=== PATIENT | female | born 1995 | race Caucasian/White ===

== ENCOUNTER 2017-06-17 11:21 | Emergency (ER) | payer MEDICAID ==
[~2017-06-17] VITALS: Wt 81.0 kg
[2017-06-17] MEDS ORDERED: SOD CHLORIDE 0.9% 1,000 ML IV STA (12:13)
[2017-06-17] MEDS ORDERED: ONDANSETRON 4 MG INJ IV STA (12:13)
--- NOTE | 2017-06-17 12:30 | ERD ---
ER Documentation Chief Complaint Date/Time DATE: 06/17/17 TIME: 12:28 Chief Complaint VOMITING WITH N/V 13 WEEK PREG HPI This a 21-year-old female presents emergency department today complaining of vomiting and nausea for the past week. States she is approximately 12-13 weeks . States that she has had nausea throughout her but it has been worse over the past week and she is having difficulty holding down fluids. States she has not taken anyMedication for vomiting. Denies any dysuria, abdominal pain, vaginal bleeding or fevers or chills. States she does have a slight headache. ROS All systems reviewed and are negative except as per history of present illness. Medications Home Meds Active Scripts Nitrofurantoin Monohyd Macrocr* (Macrobid*) 100 Mg Capsr, 100 MG PO BID for 7 Days, CAP Prov:JUANI BERMAN PA-C 06/17/17 Acetaminophen* (Tylophen*) 500 Mg Capsule, 1 CAP PO Q6H Y for PAIN AND OR ELEVATED TEMP, #30 CAP Prov:JUANI BERMAN PA-C 06/17/17 Ondansetron Hcl* (Zofran*) 4 Mg Tablet, 4 MG PO Q6H for NAUSEA AND/OR VOMITING, #30 TAB Prov:JUANI BERMAN PA-C 06/17/17 PMhx/Soc Medical and Surgical Hx: pt denies Medical Hx, pt denies Surgical Hx Hx Alcohol Use: No Hx Substance Use: No Hx Tobacco Use: No Smoking Status: Never smoker Physical Exam Vitals Vital Signs Date Time Temp Pulse Resp B/P Pulse Ox O2 Delivery O2 Flow Rate FiO2 06/17/17 11:28 98.0 79 18 126/76 99 Physical Exam Const: NAD, pleasant Head: Atraumatic Eyes: Normal Conjunctiva ENT: Normal External Ears, Nose and Mouth. Neck: Full range of motion..~ No meningismus. Resp: Clear to auscultation bilaterally Cardio: Regular rate and rhythm, no murmurs Abd: Soft, non tender, non distended. Normal bowel sounds Skin: No petechiae or rashes Back: No midline or flank tenderness Ext: No cyanosis, or edema Neur: Awake and alert Psych: Normal Mood and Affect Result Diagram: 06/17/17 1231 06/17/17 1231 Results 24 hrs Laboratory Tests Test 06/17/17 12:31 White Blood Count 9.410^3/ul Red Blood Count 4.9210^6/ul Hemoglobin 13.5g/dl Hematocrit 40.7% Mean Corpuscular Volume 82.7fl Mean Corpuscular Hemoglobin 27.4pg Mean Corpuscular Hemoglobin Concent 33.2g/dl Red Cell Distribution Width 13.3% Platelet Count 11707^3/UL Mean Platelet Volume 12.2fl Neutrophils % 78.4% Lymphocytes % 15.0% Monocytes % 5.8% Eosinophils % 0.1% Basophils % 0.3% Nucleated Red Blood Cells % 0.0/100WBC Neutrophils # 7.310^3/ul Lymphocytes # 1.410^3/ul Monocytes # 0.510^3/ul Eosinophils # 0.010^3/ul Basophils # 0.010^3/ul Nucleated Red Blood Cells # 0.010^3/ul Urine Color HUSSEIN Urine Clarity CLOUDY Urine pH 5.0 Urine Specific [place] 1.033 Urine Ketones 2+mg/dL Urine Nitrite NEGATIVEmg/dL Urine Bilirubin NEGATIVEmg/dL Urine Urobilinogen 1+mg/dL Urine Leukocyte Esterase TRACELeu/ul Urine Microscopic RBC 6/HPF Urine Microscopic WBC 13/HPF Urine Squamous Epithelial Cells FEW/HPF Urine Bacteria FEW/HPF Urine Mucus MANY/HPF Urine Hemoglobin 2+mg/dL Urine Glucose NEGATIVEmg/dL Urine Total Protein 2+mg/dl Sodium Level 138mmol/L Potassium Level 3.9mmol/L Chloride Level 105mmol/L Carbon Dioxide Level 21mmol/L Anion Gap 16 Blood Urea Nitrogen 9mg/dl Creatinine 0.59mg/dl Glucose Level 146mg/dl Calcium Level 9.6mg/dl Total Bilirubin 0.2mg/dl Direct Bilirubin 0.00mg/dl Indirect Bilirubin 0.2mg/dl Aspartate Amino Transf (AST/SGOT) 22IU/L Alanine Aminotransferase (ALT/SGPT) 27IU/L Alkaline Phosphatase 66IU/L Total Protein 8.7g/dl Albumin 4.4g/dl Globulin 4.30g/dl Albumin/Globulin Ratio 1.02 Beta HCG, Quantitative 516051.0mIU/ml Current Medications Medications (Trade) Dose Ordered Sig/Romario Route PRN Reason Start Time Stop Time Status Last Admin Dose Admin Sodium Chloride (NS) 1,000 ml @ 1,000 mls/hr Q1H STAT IV 06/17/17 12:13 06/17/17 13:12 DC 06/17/17 12:27 Ondansetron HCl (Zofran Inj) 4 mg ONCE STAT IV 06/17/17 12:13 06/17/17 12:15 DC 06/17/17 12:26 DIAGNOSTIC IMAGING REPORT Patient: ANDREE DENTON : 1995 Age: 21 Sex: F MR #: [id number] DOS: 06/17/17 0000 Ordering MD: JUANI BERMAN PA-C Location: [facility] Room/Bed: PROCEDURE: US OB. CLINICAL INDICATION: Size and dates, vomiting TECHNIQUE: Transabdominal views of the pelvis are available for review. COMPARISON: No prior studies are available for comparison. FINDINGS: There is a single intrauterine gestation with the crown-rump length measuring 5.9 cm, corresponding to a gestational age of 12 weeks and 3 days. The heart rate is noted at 161 bpm. The ovaries are not visualized. There is no free fluid. RPTAT: AA IMPRESSION: Single live intrauterine with an estimated gestational age of 12 weeks and 3 days, based on ultrasound measurements. PATTI based on ultrasound measurements is 12/29/17. .Young De Jesus MD, MD Date Time Electronically viewed and signed by .Young De Jesus MD, MD on 06/17/2017 12: 45 .S/ CC: JUANI BERMAN PA-C Procedures/MDM This is a A1 21-year-old female who presents the emergency department today for nausea and vomiting for the past week.This is the patient's first visit to this emergency department and given this I did do a complete OB workup. Laboratory workShows no elevated white blood cell count. She is not anemic. Platelets are within normal limits. Electrolytes are within normal limits. Glucose is within normal limits. Liver enzymes are within normal limits. UA Shows trace leukocyte esterase and 13 microscopic white blood cells. Beta quant hCG 761412.0 Rh status B+ Ultrasound shows a a single live intrauterine with an estimated gestational age of 12 weeks and 3 days. heart rate is 161 bpm. There is no free fluid. Patient is afebrile and otherwise well-appearing. She has no abdominal pain on physical exam and no vaginal bleeding. Low suspicion for acute surgical abdomen. I have low suspicion for ectopic , tubo ovarian abscess, ovarian torsion. Patient symptoms at this time is consistent with vomiting in early . Patient was not actively vomiting here in the emergency department. Her laboratory workup and electrolytes are within normal limits and I do not feel that she requires admission at this time. Patient will begin a prescription for Macrobid to treat the bacteria in her urine. I have explained this to her. Patient was given Zofran, IV fluids here in the emergency department. Patient reported feeling better. She was given juice to drink and successfully passed a p.o. challenge and reported that the juice sat well with her. Patient was given a prescription for Tylenol, Zofran, Pedialyte, Macrobid At this time the patient is stable for discharge and outpatient management. Patient should follow up with their PCP in the next 1-2 days. They may return to the emergency department sooner for any persistent or worsening of symptoms. Patient understood and agreed with the plan. Departure Diagnosis: Primary Impression: Vomiting during Condition: JUANI Cleaning PA-C Jun 17, 2017 12:30
[2017-06-17 12:45] LABS: BASOPHILS % 0.3 % (0.0-2.0); EOSINOPHILS % 0.1 % (0.0-7.0); HEMATOCRIT 40.7 % (37.0-47.0); HEMOGLOBIN 13.5 g/dl (12.0-16.0); LYMPHOCYTES # 1.4 10^3/ul (0.8-2.9); MEAN CORPUSCULAR HEMOGLOBIN 27.4 pg (29.0-33.0); MEAN CORPUSCULAR HGB CONC 33.2 g/dl (32.0-37.0); MEAN CORPUSCULAR VOLUME 82.7 fl (82.0-101.0); MEAN PLATELET VOLUME 12.2 fl (7.4-10.4); MONOCYTE # 0.5 10^3/ul (0.3-0.9); MONOCYTES % 5.8 % (0.0-11.0); NEUTROPHIL # 7.3 10^3/ul (1.6-7.5); NEUTROPHILS % 78.4 % (39.0-77.0); PLATELET COUNT 211 10^3/UL (140-415); RED BLOOD COUNT 4.92 10^6/ul (4.20-5.40); RED CELL DISTRIBUTION WIDTH 13.3 % (11.5-14.5); WHITE BLOOD COUNT 9.4 10^3/ul (4.8-10.8)
--- NOTE | 2017-06-17 12:45 | RADRPT ---
PROCEDURE: US OB. CLINICAL INDICATION: Size and dates, vomiting TECHNIQUE: Transabdominal views of the pelvis are available for review. COMPARISON: No prior studies are available for comparison. FINDINGS: There is a single intrauterine gestation with the crown-rump length measuring 5.9 cm, corresponding to a gestational age of 12 weeks and 3 days. The heart rate is noted at 161 bpm. The ovaries are not visualized. There is no free fluid. RPTAT: AA IMPRESSION: Single live intrauterine with an estimated gestational age of 12 weeks and 3 days, based o n ultrasound measurements. PATTI based on ultrasound measurements is 12/29/17. .Young De Jesus MD, MD Date Time Electronically viewed and signed by .Young De Jesus MD, on 06/17/2017 12:45 .S/
[2017-06-17 13:04] LABS: ALBUMIN 4.4 g/dl (3.3-4.9); ALBUMIN/GLOBULIN RATIO 1.02; BILIRUBIN,INDIRECT 0.2 mg/dl (0-1.1); BILIRUBIN,TOTAL 0.2 mg/dl (0.2-1.3); CALCIUM 9.6 mg/dl (8.4-10.2); CREATININE 0.59 mg/dl (0.44-1.00); POTASSIUM 3.9 mmol/L (3.5-5.1); TOTAL PROTEIN 8.7 g/dl (6.1-8.1)
[2017-06-17 13:05] LABS: ADD UMIC YES; UR ASCORBIC ACID NEGATIVE (NEGATIVE); UR BACTERIA FEW /HPF (NONE SEEN); UR BILIRUBIN (Dip) NEGATIVE (NEGATIVE); UR BLOOD (Dip) 2+ mg/dL (NEGATIVE); UR CLARITY CLOUDY (CLEAR); UR COLOR AMBER (YELLOW); UR GLUCOSE (Dip) NEGATIVE (NEGATIVE); UR KETONES (Dip) 2+ mg/dL (NEGATIVE); UR LEUKOCYTE ESTERASE (Dip) TRACE Leu/ul (NEGATIVE); UR MUCUS MANY /HPF (NONE SEEN); UR NITRITE (Dip) NEGATIVE (NEGATIVE); UR RBC 6 /HPF (0-5); UR SPECIFIC GRAVITY (Dip) 1.033 (1.003-1.030); UR SQUAMOUS EPITHELIAL CELL FEW /HPF (FEW); UR TOTAL PROTEIN (Dip) 2+ mg/dl (NEGATIVE); UR UROBILINOGEN (Dip) 1+ mg/dL (NEGATIVE)
[2017-06-17] MEDS ORDERED: ONDA4TAB8 PO (14:38)
[2017-06-17] MEDS ORDERED: ACET500C5 PO (14:39)
[2017-06-17] MEDS ORDERED: NITR-58 PO (14:39)
[2017-06-17] MEDS ORDERED: ELEC100080 PO (14:45)
== END 2017-06-17 15:00 | disposition home or self-care (01) ==
LOC: FTE 11:21
DX: O21.9 Vomiting of pregnancy, unspecified (principal); Z3A.12 12 weeks gestation of pregnancy
CPT/HCPCS: 36415; 76801; 80053; 81001; 84702; 85025; 86900; 86901; 96374; J2405; J7030; Z7502

== ENCOUNTER 2017-06-23 10:05 | Emergency (ER) | payer MEDICAID ==
[~2017-06-23] VITALS: Ht 165.1 cm; Wt 87.5 kg
[~2017-06-23 10:05] MED LIST: ACET500C5 PO; ELEC100080 PO; NITR-58 PO; ONDA4TAB8 PO
[2017-06-23 10:08] VITALS: Ht 165.1 cm; Wt 87.5 kg
[2017-06-23 11:18] LABS: BASOPHILS % 0.3 % (0.0-2.0); EOSINOPHILS % 0.3 % (0.0-7.0); HEMATOCRIT 40.6 % (37.0-47.0); HEMOGLOBIN 13.7 g/dl (12.0-16.0); LYMPHOCYTES # 1.7 10^3/ul (0.8-2.9); LYMPHOCYTES % 24.6 % (15.0-51.0); MEAN CORPUSCULAR HEMOGLOBIN 27.8 pg (29.0-33.0); MEAN CORPUSCULAR HGB CONC 33.7 g/dl (32.0-37.0); MEAN CORPUSCULAR VOLUME 82.4 fl (82.0-101.0); MEAN PLATELET VOLUME 12.2 fl (7.4-10.4); MONOCYTE # 0.5 10^3/ul (0.3-0.9); NEUTROPHIL # 4.5 10^3/ul (1.6-7.5); NEUTROPHILS % 66.7 % (39.0-77.0); PLATELET COUNT 201 10^3/UL (140-415); RED BLOOD COUNT 4.93 10^6/ul (4.20-5.40); RED CELL DISTRIBUTION WIDTH 13.3 % (11.5-14.5); WHITE BLOOD COUNT 6.7 10^3/ul (4.8-10.8)
[2017-06-23 11:22] LABS: ADD UMIC YES; UR ASCORBIC ACID NEGATIVE (NEGATIVE); UR BACTERIA MODERATE /HPF (NONE SEEN); UR BILIRUBIN (Dip) NEGATIVE (NEGATIVE); UR BLOOD (Dip) 3+ mg/dL (NEGATIVE); UR CLARITY CLOUDY (CLEAR); UR COLOR AMBER (YELLOW); UR GLUCOSE (Dip) 1+ mg/dL (NEGATIVE); UR KETONES (Dip) 2+ mg/dL (NEGATIVE); UR LEUKOCYTE ESTERASE (Dip) NEGATIVE Leu/ul (NEGATIVE); UR MUCUS FEW /HPF (NONE SEEN); UR NITRITE (Dip) NEGATIVE (NEGATIVE); UR RBC > 182 /HPF (0-5); UR SPECIFIC GRAVITY (Dip) 1.026 (1.003-1.030); UR TOTAL PROTEIN (Dip) 3+ mg/dl (NEGATIVE); UR UROBILINOGEN (Dip) 1+ mg/dL (NEGATIVE)
--- NOTE | 2017-06-23 12:21 | RADRPT ---
PROCEDURE: US OB. CLINICAL INDICATION: Vaginal bleeding TECHNIQUE: Transabdominal and endovaginal imaging of the gravid uterus is available for review COMPARISON: Pelvic ultrasound dated 06/17/2017 FINDINGS: There is a single intrauterine demonstrating a heart rate of 163 bpm. The crown-rump mahesh th equals 6.71 cm, giving an estimated gestational age of 13 weeks 0 days by ultrasound criteria. N o subchorionic hemorrhage is identified. The ovaries are unremarkable. IMPRESSION: Single live intrauterine with an estimated gestational age of 13 weeks 0 days by ultrasoun d criteria and an estimated date of delivery of 12/29/2017. There has been normal interval growth wh en compared to the prior examination. RPTAT: HH .Nila Umaña MD, Date Time Electronically viewed and signed by .Nila Umaña MD, on 06/23/2017 12:21 .G/
[2017-06-23 13:20] VITALS: BP 106/70; PULSE 89; RESP 20; TEMP 97.9
--- NOTE | 2017-06-23 13:39 | ERD ---
ER Documentation Chief Complaint Date/Time DATE: 06/23/17 TIME: 13:36 Chief Complaint Complains of vag blee abnd HPI 21-year-old female complaining of vaginal bleeding in . Patient states she has had clot the last 45 minutes. Denies pelvic pain. Last normal period was in April but is unsure of the exact date. She believes she is about 13 weeks . [facility] is [facility] with no specific BOTTOM FILLER. G2 POA 1. ROS All systems reviewed and are negative except as per history of present illness. Medications Home Meds Active Scripts Electrolyte,Oral (Pedialyte) 1,000 Ml Solution, 100 ML PO Q6 Y for VOMITTING, # 1000 ML Prov:JUANI BERMAN PA-C 06/17/17 Nitrofurantoin Monohyd Macrocr* (Macrobid*) 100 Mg Capsr, 100 MG PO BID for 7 Days, CAP Prov:JUANI BERMAN PA-C 06/17/17 Acetaminophen* (Tylophen*) 500 Mg Capsule, 1 CAP PO Q6H Y for PAIN AND OR ELEVATED TEMP, #30 CAP Prov:JUANI BERMAN PA-C 06/17/17 Ondansetron Hcl* (Zofran*) 4 Mg Tablet, 4 MG PO Q6H for NAUSEA AND/OR VOMITING, #30 TAB Prov:JUANI BERMAN PA-C 06/17/17 Allergies Allergies: Coded Allergies: No Known Allergy (Unverified , 06/23/17) PMhx/Soc Medical and Surgical Hx: pt denies Medical Hx, pt denies Surgical Hx Hx Alcohol Use: No Hx Substance Use: No Hx Tobacco Use: No Physical Exam Vitals Vital Signs Date Time Temp Pulse Resp B/P Pulse Ox O2 Delivery O2 Flow Rate FiO2 06/23/17 13:20 97.9 89 20 106/70 100 Room Air 06/23/17 10:08 99.0 95 20 116/74 98 Physical Exam GENERAL: The patient is well-appearing, well-nourished, in no acute distress CHEST: Clear to auscultation bilaterally. There are no rales, wheezes or rhonchi. HEART: Regular rate and rhythm. No murmurs, clicks, rubs or gallops. No S3 or S4. ABDOMEN:Soft, nontender and nondistended. Good bowel sounds. No rebound or guarding. No gross peritonitis. No gross organomegaly or masses. No Melgar sign or McBurney point tenderness. BACK: No midline or flank tenderness. Result Diagram: 06/23/17 1052 Results 24 hrs Laboratory Tests Test 06/23/17 10:52 White Blood Count 6.710^3/ul Red Blood Count 4.9310^6/ul Hemoglobin 13.7g/dl Hematocrit 40.6% Mean Corpuscular Volume 82.4fl Mean Corpuscular Hemoglobin 27.8pg Mean Corpuscular Hemoglobin Concent 33.7g/dl Red Cell Distribution Width 13.3% Platelet Count 72909^3/UL Mean Platelet Volume 12.2fl Neutrophils % 66.7% Lymphocytes % 24.6% Monocytes % 8.0% Eosinophils % 0.3% Basophils % 0.3% Nucleated Red Blood Cells % 0.0/100WBC Neutrophils # 4.510^3/ul Lymphocytes # 1.710^3/ul Monocytes # 0.510^3/ul Eosinophils # 0.010^3/ul Basophils # 0.010^3/ul Nucleated Red Blood Cells # 0.010^3/ul Urine Color HUSSEIN Urine Clarity CLOUDY Urine pH 5.0 Urine Specific [place] 1.026 Urine Ketones 2+mg/dL Urine Nitrite NEGATIVEmg/dL Urine Bilirubin NEGATIVEmg/dL Urine Urobilinogen 1+mg/dL Urine Leukocyte Esterase NEGATIVELeu/ul Urine Microscopic RBC > 182/HPF Urine Microscopic WBC > 182/HPF Urine Bacteria MODERATE/HPF Urine Mucus FEW/HPF Urine Hemoglobin 3+mg/dL Urine Glucose 1+mg/dL Urine Total Protein 3+mg/dl Beta HCG, Quantitative 649593.0mIU/ml Procedures/MDM DIAGNOSTIC IMAGING REPORT Patient: ANDREE DENTON : 1995 Age: 21 Sex: F MR #: [id number] DOS: 06/23/17 1028 Ordering MD: MELISSA COLE PA-C Location: [facility] Room/Bed: PROCEDURE: US OB. CLINICAL INDICATION: Vaginal bleeding TECHNIQUE: Transabdominal and endovaginal imaging of the gravid uterus is available for review COMPARISON: Pelvic ultrasound dated 06/17/2017 FINDINGS: There is a single intrauterine demonstrating a heart rate of 163 bpm. The crown-rump length equals 6.71 cm, giving an estimated gestational age of 13 weeks 0 days by ultrasound criteria. No subchorionic hemorrhage is identified. The ovaries are unremarkable. IMPRESSION: Single live intrauterine with an estimated gestational age of 13 weeks 0 days by ultrasound criteria and an estimated date of delivery of 2017. There has been normal interval growth when compared to the prior examination. MDM: 21-year-old female complaining of vaginal bleeding and . I have low suspicion for ectopic as patient does not have abnormal findings on ultrasound and does not have lateralized pain on pelvic palpation. I have low suspicion for UTI as patient's urine is negative. I have low suspicion for other acute abdominal etiologies as exam is not concerning. Patient is Rh+ and does not require RhoGam injection. Patient is recommended to follow-up with OB/ MULTIFOCAL BUTTON GRINDER within 1-2 days or return if symptoms change or worsen. I have low suspicion for hemodynamic instability as patient's vital signs are stable and patient is not having severe bleeding at discharge. Patient's hemoglobin is stable. Departure Diagnosis: Primary Impression: Threatened Condition: Stable Patient Instructions: Possible Miscarriage (Threatened ) Referrals: [facility] YOU HAVE RECEIVED A MEDICAL SCREENING EXAM AND THE RESULTS INDICATE THAT YOU DO NOT HAVE A CONDITION THAT REQUIRES URGENT TREATMENT IN THE EMERGENCY DEPARTMENT. FURTHER EVALUATION AND TREATMENT OF YOUR CONDITION CAN WAIT UNTIL YOU ARE SEEN IN YOUR DOCTORS OFFICE WITHIN THE NEXT 1-2 DAYS. IT IS YOUR RESPONSIBILITY TO MAKE AN APPOINTMENT FOR FOLOW-UP CARE. IF YOU HAVE A PRIMARY DOCTOR --you should call your primary doctor and schedule an appointment IF YOU DO NOT HAVE A PRIMARY DOCTOR YOU CAN CALL OUR PHYSICIAN REFERRAL HOTLINE AT IF YOU CAN NOT AFFORD TO SEE A PHYSICIAN YOU CAN CHOSE FROM THE FOLLOWING [facility] [address] [facility] [address] [facility] [address] [facility] [address] [facility] [address] [facility] [facility]. [address] Additional Instructions: FOLLOW UP WITH YOUR PRIMARY CARE PHYSICIAN TOMORROW.Return to this facility if you are not improving as expected. MAGNOLIA COLE PA-C Jun 23, 2017 13:39
== END 2017-06-23 13:22 | disposition home or self-care (01) ==
LOC: FTE 10:05
DX: O20.0 Threatened abortion (principal); Z3A.13 13 weeks gestation of pregnancy
CPT/HCPCS: 36415; 76801; 84702; 85025; 86900; 86901; Z7502

== ENCOUNTER 2017-08-16 00:05 | Inpatient (IN) | payer MEDICAID, OTHER ==
[~2017-08-16] VITALS: Ht 165.1 cm; Wt 88.7 kg
[2017-08-16 00:41] VITALS: Ht 165.1 cm; Wt 88.7 kg
[2017-08-16] MEDS ORDERED: PNV-4 PO (00:52)
[2017-08-16 01:11] LABS: BASOPHILS % 0.3 % (0.0-2.0); EOSINOPHILS # 0.1 10^3/ul (0.0-0.5); EOSINOPHILS % 0.6 % (0.0-7.0); HEMATOCRIT 32.4 % (37.0-47.0); HEMOGLOBIN 10.8 g/dl (12.0-16.0); LYMPHOCYTES # 2.1 10^3/ul (0.8-2.9); LYMPHOCYTES % 20.5 % (15.0-51.0); MEAN CORPUSCULAR HEMOGLOBIN 28.3 pg (29.0-33.0); MEAN CORPUSCULAR HGB CONC 33.3 g/dl (32.0-37.0); MEAN CORPUSCULAR VOLUME 84.8 fl (82.0-101.0); MEAN PLATELET VOLUME 10.9 fl (7.4-10.4); MONOCYTE # 0.9 10^3/ul (0.3-0.9); MONOCYTES % 8.7 % (0.0-11.0); NEUTROPHIL # 7.1 10^3/ul (1.6-7.5); NEUTROPHILS % 69.3 % (39.0-77.0); PLATELET COUNT 212 10^3/UL (140-415); RED BLOOD COUNT 3.82 10^6/ul (4.20-5.40); RED CELL DISTRIBUTION WIDTH 13.9 % (11.5-14.5); WHITE BLOOD COUNT 10.3 10^3/ul (4.8-10.8)
[2017-08-16 01:40] LABS: ADD UMIC YES; UR ASCORBIC ACID NEGATIVE (NEGATIVE); UR BILIRUBIN (Dip) NEGATIVE (NEGATIVE); UR BLOOD (Dip) 3+ mg/dL (NEGATIVE); UR CLARITY CLEAR (CLEAR); UR COLOR YELLOW (YELLOW); UR GLUCOSE (Dip) NEGATIVE (NEGATIVE); UR KETONES (Dip) NEGATIVE (NEGATIVE); UR LEUKOCYTE ESTERASE (Dip) NEGATIVE Leu/ul (NEGATIVE); UR MUCUS FEW /HPF (NONE SEEN); UR NITRITE (Dip) NEGATIVE (NEGATIVE); UR RBC > 182 /HPF (0-5); UR SQUAMOUS EPITHELIAL CELL FEW /HPF (FEW); UR TOTAL PROTEIN (Dip) NEGATIVE (NEGATIVE); UR UROBILINOGEN (Dip) NEGATIVE (NEGATIVE)
--- NOTE | 2017-08-16 02:03 | RADRPT ---
PROCEDURE: US OB. CLINICAL INDICATION: Bleeding. TECHNIQUE: Multiple sonographic images of the pelvis were obtained. Transabdominal imaging only w as performed. The images were reviewed on a PACS workstation. COMPARISON: 06/23/2017. FINDINGS: Single live intrauterine is identified. Cardiac activity is present with 144 beats per mi nute. There is a vertex presentation. Measurements: BPD = 21 weeks 5 days HC = 21 weeks 3 days. AC = 22 weeks 1 day. FL = 21 weeks 4 days. Estimated gestational age of approximately 21 weeks 5 days. The estimated date of delivery is 12/22/2017. The EFW = 454 g which is at the 94th percentile.. The placenta is left lateral. There is interval development of a abnormality in the placenta suspici ous for a abruption a possible adjacent blood clot. There is a grossly normal amount of amniotic fluid with an MVP = 6 cm. IMPRESSION: Single live intrauterine gestation of approximately 21 weeks 5 days. Probable placental abruption w ith associated hemorrhage. RPTAT: HMVK .Elie Castro MD, MD Date Time Electronically viewed and signed by .Elie Castro MD, on 08/16/2017 02:03 .K/
[2017-08-16 02:28] LABS: BARBITURATES Negative (NEGATIVE); BENZODIAZEPINES Negative (NEGATIVE); CANNABINOIDS Negative (NEGATIVE); COCAINE Negative (NEGATIVE); OPIATES Negative (NEGATIVE)
[2017-08-16] MEDS ORDERED: LACTATED RINGER'S 1,000 ML IV SCH (07:03)
--- NOTE | 2017-08-16 09:33 | HP ---
Date/Time of Note Date/Time of Note DATE: 08/16/17 TIME: 09:32 OB - History Hx of Present Free Text/Dictation 20+wks GA with bleeding : 2 Para: 0 Care: Good Care Obstetrical Complications: None Medical Complications: None Past Family/Social History * Past Medical, Surgical, Family and Obstetric Histories reviewed from chart. OB Admission Exam Physical Exam Abdomen: WNL Extremities: Normal Membranes: Intact Heart Rate: 150's Contractions on Admission: None Last 72 hours Lab Results CBC & BMP 08/16/17 01:02 OB Assessment/Plan Reason for admission: observation Plan: Expectant Management Other plan: 2 PRBC on hold Complete bed rest Cervical lenrth Hydration SARAI CHRISTIANSON M.D. Aug 16, 2017 09:33
[2017-08-16] MEDS ORDERED: LIDOCAINE 1% (MPF) 30 ML INJ INJ PRN (10:00)
[2017-08-16] MEDS ORDERED: METHYLERGONOVINE 0.2 MG INJ IM PRN (10:00)
[2017-08-16] MEDS ORDERED: OXYTOCIN 30 UNITS/LR 500 ML IV PRN (10:00)
[2017-08-16] MEDS ORDERED: CARBOPROST 250 MCG INJ IM PRN (10:00)
[2017-08-16] MEDS ORDERED: MISOPROSTOL 200 MCG TAB PR PRN (10:00)
--- NOTE | 2017-08-16 11:25 | RADRPT ---
PROCEDURE: Limited obstetric ultrasound CLINICAL INDICATION: Vaginal bleeding TECHNIQUE: Multiple transverse and longitudinal grayscale images of the pelvis were obtained [place] sabdominally and transvaginally.. COMPARISON: same day FINDINGS: The cervix is closed with a length of 3.7 cm. There is a Nabothian cysts in the cervix. There is a single viable intrauterine gestation. Cardiac activity is present with 146 beats per min [place]. There is a vertex presentation. The placenta is left lateral. There is no evidence for an abruption or placenta previa. RPTAT: AA IMPRESSION: Cervix length measures 3.7 cm. .Young De Jesus MD, MD Date Time Electronically viewed and signed by .Young De Jesus MD, on 08/16/2017 11:25 .S/
[2017-08-16 12:16] LABS: BASOPHILS % 0.1 % (0.0-2.0); EOSINOPHILS % 0.1 % (0.0-7.0); HEMATOCRIT 29.8 % (37.0-47.0); HEMOGLOBIN 10.1 g/dl (12.0-16.0); LYMPHOCYTES # 1.5 10^3/ul (0.8-2.9); LYMPHOCYTES % 15.9 % (15.0-51.0); MEAN CORPUSCULAR HEMOGLOBIN 28.6 pg (29.0-33.0); MEAN CORPUSCULAR HGB CONC 33.9 g/dl (32.0-37.0); MEAN CORPUSCULAR VOLUME 84.4 fl (82.0-101.0); MEAN PLATELET VOLUME 11.6 fl (7.4-10.4); MONOCYTE # 0.6 10^3/ul (0.3-0.9); NEUTROPHIL # 7.1 10^3/ul (1.6-7.5); NEUTROPHILS % 77.4 % (39.0-77.0); PLATELET COUNT 203 10^3/UL (140-415); RED BLOOD COUNT 3.53 10^6/ul (4.20-5.40); RED CELL DISTRIBUTION WIDTH 14.1 % (11.5-14.5); WHITE BLOOD COUNT 9.2 10^3/ul (4.8-10.8)
[2017-08-16 12:35] LABS: INR 1.01; PROTIME 13.3 Sec (12.2-14.2)
[2017-08-16 12:36] LABS: PARTIAL THROMBOPLASTIN TIME 28.6 Sec (25.0-35.0)
[2017-08-16] MEDS: LACTATED RINGER'S 1,000 ML IV SCH (14:38)
[2017-08-16] MEDS ORDERED: ACETAMINOPHEN 325 MG TAB PO PRN (16:30)
[2017-08-17] MEDS: LACTATED RINGER'S 1,000 ML IV SCH (06:32)
--- NOTE | 2017-08-17 11:36 | QN ---
Documentation Comment Patient is seen and evaluated awake alert oriented 3 denies any headache nausea vomiting shortness of breath visual changes epigastric pain Patient denies any contractions vaginal bleeding or discharge Vital signs stable afebrile Abdomen soft nontender negative distention Extremity negative edema no calf tenderness Vaginal exam no active bleeding no spotting heart rate 140s no contraction Assessment interim at 20 weeks gestational age second trimester vaginal bleeding resolved Plan discharge home today with modified bedrest Follow up with Dr. Davis tomorrow in a.. SCAR ROMO MD Aug 17, 2017 11:36
--- NOTE | 2017-08-17 11:41 | PD.PPDC ---
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 calderon tomorrow Return to clinic for HUMAN SERVICES CARE SPECIALIST Instructions: Fever greater than 101 Chills Worsening abdominal pain Excessive Vaginal Bleeding More than 2 pads per hour Unable to tolerate diet OB Instructions: Breast Tenderness Depression Blurried Vision Headache SCAR ROMO MD Aug 17, 2017 11:41
--- NOTE | 2017-08-17 11:51 | DS ---
DATE OF ADMISSION: 08/16/2017 DATE OF DISCHARGE: 08/17/2017 PRIMARY DIAGNOSES: A 22-year-old 2, para 0, intrauterine at 20 weeks and 6 days g estational age, second trimester vaginal bleeding with a questionable placental abruption, undeliver ed. PROCEDURE: None. CONDITION ON DISCHARGE: Stable. ACTIVITY: Modified bed rest, no heavy lifting, pelvic rest. DIET: Regular. MEDICATIONS: 1. Continue vitamins. 2. Iron 325 mg p.o. b.i.d. DISCHARGE SUMMARY: Ms. Emma Matos is a 22-year-old 2, para 0, intrauterine at 20 weeks and 6 days gestational age, presented to triage yesterday complaining of vaginal spotting w ith clots. She had an official ultrasound performed with suspected partial placental abruptia. She is currently lying in supine position with no apparent distress. She denies any contractions, vagi nal bleeding, or discharge. She has no active vaginal bleeding right now. The patient has an appoi ntment tomorrow with Dr. Davis for followup perinatology consultation/anatomy scan. The patient in structed to return to the hospital if vaginal bleeding persists. Dictated By: SCAR KNAPP/GILDA Conf#: [id number] DID#: [id number]
== END 2017-08-17 12:08 | disposition home or self-care (01) | DRG 782 ==
LOC: L-D 00:05 → OBT 00:05 → L-D 00:53 → OBT 09:47
PROVIDERS: ADMIT Obstetrics & Gynecology; ATTEND Obstetrics & Gynecology
DX: O46.93 Antepartum hemorrhage, unspecified, third trimester (principal); Z3A.20 20 weeks gestation of pregnancy
CPT/HCPCS: 76815; 76817; 80307; 81001; 85025; 85610; 85730; 86592; 86850; 86900; 86901; 86920; 96360; 96361; G0463; J7120

== ENCOUNTER 2017-08-27 10:39 | Outpatient (CLI) | payer OTHER ==
[~2017-08-27] VITALS: Ht 165.1 cm; Wt 87.4 kg
[~2017-08-27 10:39] MED LIST changes: -ACET500C5 PO; -ELEC100080 PO; -NITR-58 PO; -ONDA4TAB8 PO; +PNV-4 PO
[2017-08-27 10:57] VITALS: Ht 165.1 cm; Wt 87.4 kg
[2017-08-27 10:58] VITALS: BP 111/75; PULSE 96; RESP 18
--- NOTE | 2017-08-27 12:16 | RADRPT ---
PROCEDURE: US OB. CLINICAL INDICATION: Vaginal bleeding , pain TECHNIQUE: Transabdominal views of the pelvis are available for review. COMPARISON: US PELVIS 06/23/2017 FINDINGS: There is a single intrauterine gestation in a vertex position. The heart rate is noted at 136 bpm. The placenta is left lateral. There is a focal anechoic area adjacent to the placenta, consistent w ith placental abruption, measuring 4.6 x 6.2 x 3.1 cm. The MVP measures 4.2 cm. RPTAT: AA IMPRESSION: Moderate area of placenta abruption. .Young De Jesus MD, MD Date Time Electronically viewed and signed by .Young De Jesus MD, on 08/27/2017 12:16 .S/
[2017-08-27 12:36] LABS: ADD UMIC YES; UR AMORPHOUS CRYSTAL FEW /HPF (NONE SEEN); UR ASCORBIC ACID NEGATIVE (NEGATIVE); UR BACTERIA FEW /HPF (NONE SEEN); UR BILIRUBIN (Dip) NEGATIVE (NEGATIVE); UR BLOOD (Dip) 3+ mg/dL (NEGATIVE); UR CLARITY CLOUDY (CLEAR); UR COLOR YELLOW (YELLOW); UR GLUCOSE (Dip) NEGATIVE (NEGATIVE); UR KETONES (Dip) NEGATIVE (NEGATIVE); UR LEUKOCYTE ESTERASE (Dip) NEGATIVE Leu/ul (NEGATIVE); UR NITRITE (Dip) NEGATIVE (NEGATIVE); UR RBC 0 /HPF (0-5); UR SPECIFIC GRAVITY (Dip) 1.014 (1.003-1.030); UR TOTAL PROTEIN (Dip) NEGATIVE (NEGATIVE); UR UROBILINOGEN (Dip) NEGATIVE (NEGATIVE)
[2017-08-27 13:24] LABS: BASOPHILS % 0.2 % (0.0-2.0); EOSINOPHILS # 0.1 10^3/ul (0.0-0.5); EOSINOPHILS % 0.6 % (0.0-7.0); HEMATOCRIT 27.9 % (37.0-47.0); HEMOGLOBIN 9.4 g/dl (12.0-16.0); LYMPHOCYTES # 1.7 10^3/ul (0.8-2.9); LYMPHOCYTES % 17.1 % (15.0-51.0); MEAN CORPUSCULAR HEMOGLOBIN 28.9 pg (29.0-33.0); MEAN CORPUSCULAR HGB CONC 33.7 g/dl (32.0-37.0); MEAN CORPUSCULAR VOLUME 85.8 fl (82.0-101.0); MEAN PLATELET VOLUME 11.9 fl (7.4-10.4); MONOCYTE # 0.7 10^3/ul (0.3-0.9); NEUTROPHIL # 7.2 10^3/ul (1.6-7.5); NEUTROPHILS % 74.4 % (39.0-77.0); PLATELET COUNT 206 10^3/UL (140-415); RED BLOOD COUNT 3.25 10^6/ul (4.20-5.40); RED CELL DISTRIBUTION WIDTH 14.1 % (11.5-14.5); WHITE BLOOD COUNT 9.7 10^3/ul (4.8-10.8)
[2017-08-27 13:42] LABS: INR 0.95; PROTIME 12.7 Sec (12.2-14.2)
[2017-08-27 13:43] LABS: PARTIAL THROMBOPLASTIN TIME 30.6 Sec (25.0-35.0)
--- NOTE | 2017-08-27 15:00 | PN ---
Triage Information Date/Time Reason for visit: Vag spotting / bleeding Weeks of Gestation 22 weeks /Para Objective Vital Signs Date Time Temp Pulse Resp B/P Pulse Ox O2 Delivery O2 Flow Rate FiO2 08/27/17 10:58 99.4 96 18 111/75 96 Room Air Heart Rate Comments Doptones present Contractions: None Results/Medications Result Diagram: 08/27/17 1308 Results 24 hrs Laboratory Tests Test 08/27/17 11:45 08/27/17 13:08 Urine Color YELLOW Urine Clarity CLOUDY A Urine pH 8.0 Urine Specific [place] 1.014 Urine Ketones NEGATIVE Urine Nitrite NEGATIVE Urine Bilirubin NEGATIVE Urine Urobilinogen NEGATIVE Urine Leukocyte Esterase NEGATIVE Urine Microscopic RBC 0 Urine Microscopic WBC 4 Urine Amorphous Crystals FEW A Urine Bacteria FEW A Urine Hemoglobin 3+ H Urine Glucose NEGATIVE Urine Total Protein NEGATIVE White Blood Count 9.7 Red Blood Count 3.25 L Hemoglobin 9.4 L Hematocrit 27.9 L Mean Corpuscular Volume 85.8 Mean Corpuscular Hemoglobin 28.9 L Mean Corpuscular Hemoglobin Concent 33.7 Red Cell Distribution Width 14.1 Platelet Count 195 Mean Platelet Volume 11.9 H Neutrophils % 74.4 Lymphocytes % 17.1 Monocytes % 7.0 Eosinophils % 0.6 Basophils % 0.2 Nucleated Red Blood Cells % 0.0 Neutrophils # 7.2 Lymphocytes # 1.7 Monocytes # 0.7 Eosinophils # 0.1 Basophils # 0.0 Nucleated Red Blood Cells # 0.0 Prothrombin Time 12.7 Prothrombin Time Ratio 1.0 INR International Normalized Ratio 0.95 Activated Partial Thromboplast Time 30.6 Thrombin Time 13.0 L Imaging Results US showed a focal anechoic area adjacent to the placenta, consistent with placental abruption, measuring 4.6 x 6.2 x 3.1 cm. The MVP measures 4.2 cm. Disposition: Discharge Assessment/Plan Discharge home with bleeding precautions. Continue to monitor bleeding. F/u with OB. SUBHA NGUYEN Aug 27, 2017 15:00
== END 2017-08-27 14:35 | disposition home or self-care (01) ==
LOC: OBT 10:39 → L-D 10:41 → OBT 14:35
PROVIDERS: ATTEND Obstetrics & Gynecology
DX: O26.852 Spotting complicating pregnancy, second trimester (principal); Z3A.22 22 weeks gestation of pregnancy
CPT/HCPCS: 76815; 81001; 85025; 85049; 85610; 85670; 85730; 86900; 86901; Z7500; G0463

== ENCOUNTER 2017-09-05 10:18 | Inpatient (IN) | payer OTHER ==
[~2017-09-05] VITALS: Ht 165.1 cm; Wt 87.2 kg
[2017-09-05 10:52] VITALS: Ht 165.1 cm; Wt 87.2 kg
[2017-09-05 10:53] VITALS: BP 116/76; PULSE 100
--- NOTE | 2017-09-05 12:28 | RADRPT ---
PROCEDURE: US OB. CLINICAL INDICATION: . Vaginal bleeding. TECHNIQUE: Multiple sonographic images of the uterus were obtained. The images were revi ewed on a PACS workstation. COMPARISON: 08/27/2017. FINDINGS: There is a single live intrauterine gestation. heart rate is 154 beats per minute. Measurements were made in order to determine age. The results are as follows: BPD = 5.78 cm. HC = 21.14 cm. AC = 19.76 cm. FL = 4.1 cm. Estimated weight is 640 +/- 96 grams. LMP growth percentile is 58 %. The cervix is closed with a length of 3.2 cm. Menstrual age by ultrasound dates is 23 weeks 5 days. The estimated date of delivery is 12/28/2017. Position is cephalic and placenta is left lateral grade 1. There is an hypoechoic region with program management intern al debris in the lower uterine segment region measuring 6.6 x 4.2 x 3.0 cm which may indicate blood clot. IMPRESSION: 1. Single live intrauterine gestation of 23 weeks 5 days menstrual age by ultrasound dates. 2. The estimated date of delivery is 12/28/2017. 3. Probable blood clot in the lower uterine segment region measuring 6.6 x 4.2 x 3.0 cm. RPTAT: QQ .Zeonn Varela MD, Date Time Electronically viewed and signed by .Zenon Varela MD, MD on 09/05/2017 12:28 .R/
[2017-09-05 13:00] LABS: BASOPHILS % 0.2 % (0.0-2.0); EOSINOPHILS % 0.4 % (0.0-7.0); HEMOGLOBIN 10.4 g/dl (12.0-16.0); LYMPHOCYTES # 1.4 10^3/ul (0.8-2.9); LYMPHOCYTES % 13.4 % (15.0-51.0); MEAN CORPUSCULAR HEMOGLOBIN 29.1 pg (29.0-33.0); MEAN CORPUSCULAR HGB CONC 33.5 g/dl (32.0-37.0); MEAN CORPUSCULAR VOLUME 86.8 fl (82.0-101.0); MEAN PLATELET VOLUME 11.2 fl (7.4-10.4); MONOCYTE # 0.6 10^3/ul (0.3-0.9); MONOCYTES % 5.8 % (0.0-11.0); NEUTROPHIL # 8.5 10^3/ul (1.6-7.5); NEUTROPHILS % 79.6 % (39.0-77.0); PLATELET COUNT 191 10^3/UL (140-415); RED BLOOD COUNT 3.57 10^6/ul (4.20-5.40); RED CELL DISTRIBUTION WIDTH 14.6 % (11.5-14.5); WHITE BLOOD COUNT 10.7 10^3/ul (4.8-10.8)
--- NOTE | 2017-09-05 13:54 | HP ---
Date/Time of Note Date/Time of Note DATE: 09/05/17 TIME: 13:52 OB - History Hx of Present Free Text/Dictation @23wks GA with placental abruption and vaginal beelding : 2 Para: 0 Care: Good Care Ultrasounds: Normal mid trimester US, Abnormal US findings Obstetrical Complications: None Medical Complications: None Past Family/Social History * Past Medical, Surgical, Family and Obstetric Histories reviewed from chart. OB Admission Exam Vital Signs Vital Signs Vital Signs Date Time Temp Pulse Resp B/P Pulse Ox O2 Delivery O2 Flow Rate FiO2 09/05/17 10:53 98.0 100 116/76 Physical Exam Abdomen: WNL Cervical Dilatation: None Effacement: 0% Station: Ballotable Membranes: Intact Accelerations: Accelerations Present Decelerations: No Decelerations Varibility: Moderate Contractions on Admission: None Last 72 hours Lab Results CBC & BMP 09/05/17 12:44 OB Assessment/Plan Reason for admission: observation Plan: Expectant Management Other plan: Mg Steroids Prenatalogy consult Neonatalogy consult Continious monitoring SARAI CHRISTIANSON M.D. Sep 05, 2017 13:54
[2017-09-05] MEDS ORDERED: LACTATED RINGER'S 1,000 ML IV SCH (13:59)
[2017-09-05] MEDS ORDERED: MAGNESIUM SULFATE 20 GM/500 ML 500 ML IV SCH (13:59)
[2017-09-05] MEDS ORDERED: BETAMET NA PHOS/AC(6 MG/ML) 5ML INJ IM SCH (14:00)
[2017-09-05] MEDS ORDERED: MAGNESIUM SULFATE 4 GM/100 ML 100 ML IV ONE ×2 (14:00→15:00)
[2017-09-05] MEDS ORDERED: ACETAMINOPHEN 325 MG TAB PO PRN (14:00)
[2017-09-05] MEDS: LACTATED RINGER'S 1,000 ML IV SCH (15:15)
[2017-09-05] MEDS: BETAMET NA PHOS/AC(6 MG/ML) 5ML INJ IM SCH (15:16)
[2017-09-05] MEDS: MAGNESIUM SULFATE 20 GM/500 ML 500 ML IV SCH (15:53)
[2017-09-06] MEDS: MAGNESIUM SULFATE 20 GM/500 ML 500 ML IV SCH ×3 (01:21→20:22)
[2017-09-06] MEDS: LACTATED RINGER'S 1,000 ML IV SCH ×2 (01:29→13:59)
[2017-09-06] MEDS: ACETAMINOPHEN 325 MG TAB PO PRN ×2 (05:56→14:10)
[2017-09-06] MEDS ORDERED: PRENATAL VITAMIN PO SCH (09:00)
[2017-09-06] MEDS ORDERED: FERROUS SULFATE (EC) 325 MG TAB PO SCH (09:00)
[2017-09-06] MEDS: FERROUS SULFATE (EC) 325 MG TAB PO SCH (09:09)
[2017-09-06] MEDS: PRENATAL VITAMIN PO SCH (09:10)
--- NOTE | 2017-09-06 10:57 | CONS ---
Date/Time of Note Date/Time of Note DATE: 09/06/17 TIME: 10:44 Assessment/Plan Assessment/Plan Chief Complaint/Hosp Course I have spoken to the mother and maternal grandmother explaining about extremely premature and borderline viable extreme low birthweight babies and explained her about NICU course, survival of about 60-70% depending on when she delivers the baby, long and short-term risks with respiratory distress syndrome and oxygen therapy, chronic lung disease, retinopathy of prematurity with vision problems, intraventricular hemorrhage with long-term neurodevelopmental problems and answered their questions and address the concerns. Explained to them about RDS, oxygen therapy, ventilatory assistance, risk for chronic lung disease and oxygen dependency, patent ductus arteriosus, intercurrent infections and antibiotic therapy, gentle procedures done in NICU, general treatment plan, feeding problems with necrotizing enterocolitis and gastroesophageal reflux, nippling problems, high risk for intraventricular hemorrhage, long-term neurodevelopmental problems including but not limited to delayed milestones, seizures, hydrocephalus, feeding problems, cerebral palsy, low intelligence and school problems, need for blood product usage during the hospital course and attendant risks with blood product usage like infection with HIV, CMV, hepatitis, jaundice, phototherapy, electrolyte problems, osteopenia of prematurity, and special care needed as outpatient if the baby's overlies the above problems and is discharged home after prolonged hospital course. Mom seems to understand the risks well and had appropriate questions and concerns that were addressed. Problems: Additional Assessment/Plan I thank Dr. deluna and Dr. Garcia for allowing me to take part in the care of this patient . Will follow the mom and the baby as needed . Consultation Date/Type/Reason Admit Date/Time Sep 05, 2017 at 13:50 Date of Consultation: Sep 06, 2017 Reason for Consultation Intrauterine at 23 and 5/7 weeks with history of vaginal bleeding and placental abruption Consult requested by the admitting fashion consultant sales Dr. Deluna Hx of Present Illness 22-year-old 2, para 0 is admitted to labor and delivery with history of vaginal bleeding and placental abruption. Obstetrical ultrasound showed clot in the lower uterine segment and estimated weight of 640 g 96 g. Mom denies history of any other problems during . Intrauterine , on magnesium sulfate and given 1 dose of betamethasone so far. Constitutional: improved, no complaints Eyes: no complaints ENT: no complaints Respiratory: no complaints Cardiovascular: no complaints Gastrointestinal: no complaints Genitourinary: no complaints Musculoskeletal: no complaints Skin: no complaints Neurologic: no complaints Endocrine: no complaints Lymphatic: no complaints Psychological: nl mood/affect, no complaints Immunologic: no complaints Additional Comments No active vaginal bleeding at this time. No uterine contractions. Past Medical History Noncontributory to mother or baby's condition . Medical History: no pertinent history Past Surgical History Past Surgical Hx: no surgical history Family History Significant Family History: no pertinent family hx Social History Alcohol Use: none Smoking Status: Never smoker Drug Use: none Exam/Review of Systems Vital Signs Vitals Vital Signs Date Time Temp Pulse Resp B/P Pulse Ox O2 Delivery O2 Flow Rate FiO2 09/05/17 10:53 98.0 100 116/76 Intake and Output 09/05/17 09/05/17 09/06/17 15:00 23:00 07:00 Intake Total 1500 ml 1000 ml Output Total 1550 ml 2800 ml Balance -50 ml -1800 ml Results Result Diagram: 09/05/17 1244 Results 24 hrs Laboratory Tests Test 09/05/17 11:35 09/05/17 12:44 09/05/17 17:50 09/06/17 00:45 Fibronectin POSITIVE White Blood Count 10.7 Red Blood Count 3.57 L Hemoglobin 10.4 L Hematocrit 31.0 L Mean Corpuscular Volume 86.8 Mean Corpuscular Hemoglobin 29.1 Mean Corpuscular Hemoglobin Concent 33.5 Red Cell Distribution Width 14.6 H Platelet Count 191 Mean Platelet Volume 11.2 H Neutrophils % 79.6 H Lymphocytes % 13.4 L Monocytes % 5.8 Eosinophils % 0.4 Basophils % 0.2 Nucleated Red Blood Cells % 0.0 Neutrophils # 8.5 H Lymphocytes # 1.4 Monocytes # 0.6 Eosinophils # 0.0 Basophils # 0.0 Nucleated Red Blood Cells # 0.0 Magnesium Level 3.7 H 4.6 H Test 09/06/17 05:34 Magnesium Level 4.6 H Medications Medications Current Medications Lactated Ringer's 1,000 ml @ 75 mls/hr [id number] IV Last administered on t 01:29; Admin Dose 75 MLS/HR; Start 09/05/17 at 14:50 Magnesium Sulfate (Magnesium Sulfate 20 Gm/500 ml) 500 ml @ 50 mls/hr Q10H IV Last administered on 09/06/17 01:21; Admin Dose 50 MLS/HR; Start 09/05/17 at 14 :50 Betamethasone Acet/Betameth SodPhos (Celestone Soluspan) 12 mg Q24H IM Last administered on 09/05/17 15:16; Admin Dose 12 MG; Start 09/05/17 at 15:00; Stop 09/06/17 at 15:01 Prenat Multivit/ [place]/Iron/Folic Ac () 1 tab DAILY PO Last administered on 09/06/17 09:10; Admin Dose 1 TAB; Start 09/06/17 at 09:00 Ferrous Sulfate (Ferrous Sulfate (Ec)) 325 mg DAILY PO Last administered on 09:09; Admin Dose 325 MG; Start 09/06/17 at 09:00 Acetaminophen (Tylenol Tab) 650 mg Q4H PRN PO PAIN AND OR ELEVATED TEMP Last administered on 09/06/17 05:56; Admin Dose 650 MG; Start 09/05/17 at 15:00 OSCAR WOOD MD Sep 06, 2017 10:56
--- NOTE | 2017-09-06 13:28 | CONS ---
DATE OF ADMISSION: 09/05/2017 DATE OF CONSULTATION: 09/06/2017 HISTORY OF PRESENT ILLNESS: The patient is a primigravida at 23 weeks and 6 days, today presented w ith complaint of some wine-colored vaginal spotting which preceded by severe abdominal cramping. So far she has not had any vaginal spotting or bleeding. Per patient, she has been experiencing vagin al bleeding for about a month. She has had ultrasounds with Dr. Davis and there has been a retropl acental hematoma which apparently has been decreasing in size. On today's ultrasound, the hematoma is about 5 x 6 cm and is very close to the cervix. The reason she decided to come to the hospital at this time was because of the pain that preceded th e vaginal spotting. She denies red vaginal bleeding. Cervical length per nurse is 3.5 cm. She is currently on magnesium sulfate and receiving betamethasone. Estimated weight is 680 gr ams. PAST MEDICAL HISTORY: OB history not significant. This is the first . REVIEW OF SYSTEMS: All systems were reviewed and negative except for what is mentioned above. PHYSICAL EXAMINATION: VITAL SIGNS: Stable. Physical exam deferred. IMPRESSION: Intrauterine at 23 weeks and 6 days with some chronic vaginal spotting and po ssible contractions, currently on magnesium sulfate, receiving betamethasone. There is a large subchorionic hematoma very close to the cervix. I am unaware of the size of the pr evious hematoma seen on the ultrasound done at Dr. Davis's office. Currently, she does not have any spotting. Again, she denies any red vaginal bleeding recently. RECOMMENDATIONS: Continue with the magnesium sulfate until 24 hours after the second dose of betame thasone. I would watch this patient 12 to 24 hours after magnesium is discontinued. If there is no evidence of cervical change and she does not have any red vaginal bleeding, then we can consider laurie alvarado home. She is to move in with her mother. For immediate future, she should be on modified b ed rest and she should have an appointment for transvaginal cervical length within a week of patient 's discharge from the hospital. It is expected for the patient to have some brownish discharge unti l this hematoma resolves; however, if she has any red vaginal bleeding or she has pain she should re turn to the hospital immediately. I spoke to her and her mother and I spoke to her nurse. Please call me with any further questions. Dictated By: MADDIE MORRISON MD ST/NTS Conf#: [id number] DID#: [id number] CC: SCAR ROMO MD;*EndCC*
[2017-09-06] MEDS: BETAMET NA PHOS/AC(6 MG/ML) 5ML INJ IM SCH (15:00)
--- NOTE | 2017-09-06 18:23 | QN ---
Documentation Comment Progress note Patient seen and evaluated awake alert oriented 3 Denies vaginal bleeding contractions discharge Vital signs stable afebrile Abdomen gravid soft nontender negative distention no CVA bilateral Extremity negative edema no calf tenderness Vaginal exam deferred heart tones 140s [place] no contractions Assessment 22-year-old 1 para 0 interim at 23 weeks and 6 days gestational age with a history of retroplacental hematoma with chronic vaginal spotting contractions resolved currently on magnesium sulfate Plan per perinatologist discontinue magnesium sulfate 24 hours post steroid treatment and continue to monitor patient Social work consult SCAR ROMO MD Sep 06, 2017 18:23
[2017-09-07] MEDS: LACTATED RINGER'S 1,000 ML IV SCH ×2 (03:02→17:00)
[2017-09-07] MEDS: MAGNESIUM SULFATE 20 GM/500 ML 500 ML IV SCH (07:21)
[2017-09-07] MEDS: PRENATAL VITAMIN PO SCH (08:30)
[2017-09-07] MEDS: FERROUS SULFATE (EC) 325 MG TAB PO SCH ×2 (08:30→20:44)
--- NOTE | 2017-09-07 12:53 | QN ---
Documentation Comment Progress note Patient seen and evaluated awake alert oriented 3 Denies vaginal bleeding contractions discharge Vital signs stable afebrile Abdomen gravid soft nontender negative distention no CVA bilateral Extremity negative edema no calf tenderness Vaginal exam deferred heart tones 130s [place] no contractions Assessment 22-year-old 1 para 0 interim at 24 weeks and 0 days gestational age with a history of retroplacental hematoma with chronic vaginal spotting contractions resolved currently on magnesium sulfate Plan per perinatologist discontinue magnesium sulfate 24 hours post steroid treatment and continue to monitor patient SCAR ROMO MD Sep 07, 2017 12:53
[2017-09-08] MEDS: LACTATED RINGER'S 1,000 ML IV SCH ×3 (06:29→22:07)
--- NOTE | 2017-09-08 07:06 | QN ---
Documentation Comment Progress note Patient seen and evaluated awake alert oriented 3 Denies vaginal bleeding contractions discharge Vital signs stable afebrile Abdomen gravid soft nontender negative distention no CVA bilateral Extremity negative edema no calf tenderness Vaginal exam deferred heart tones 130s [place] no contractions Assessment 22-year-old 1 para 0 interim at 24 weeks gestational age with a history of retroplacental hematoma with chronic vaginal spotting contractions resolved currently on magnesium sulfate Plan discharge home today after 3pm if stable SCAR ROMO MD Sep 08, 2017 07:06
--- NOTE | 2017-09-08 07:12 | PD.PPDC ---
GIS PROFESSOR Discharge Instruction Condition Patient Condition: Fair Diet Diet: Resume Regular Diet Activity/Restrictions Activity: Bedrest Restrictions: No Exercising No Lifting Minimize Walking Minimize Stair-climbing No Sexual Activity Nothing in the Vagina No [place] No Tampons, douche Return to clinic for PEA VINER MECHANIC Instructions: Fever greater than 101 Chills Worsening abdominal pain Excessive Vaginal Bleeding More than 2 pads per hour Unable to tolerate diet OB Instructions: Breast Tenderness Depression Blurried Vision Headache SCAR ROMO MD Sep 08, 2017 07:12
[2017-09-08] MEDS: FERROUS SULFATE (EC) 325 MG TAB PO SCH ×2 (08:59→21:06)
[2017-09-08] MEDS: PRENATAL VITAMIN PO SCH (08:59)
--- NOTE | 2017-09-08 12:28 | DS ---
DATE OF ADMISSION: 09/05/2017 DATE OF DISCHARGE: 09/08/2017 PRIMARY DIAGNOSES: A 22-year-old 1, para 0, intrauterine at 24 weeks gestational age with chronic vaginal spotting/third and labor with a history of retroplacental hematoma, undelivered. PROCEDURE: None. CONDITION ON DISCHARGE: Stable. ACTIVITY: Modified bed rest and pelvic rest. DIET: Regular. MEDICATIONS ON DISCHARGE: 1. Iron. 2. Continue vitamins. DISCHARGE SUMMARY: Ms. Shayla Matos was admitted on 09/05/2017 secondary to vaginal bleeding. She was started on IV fluids and patient received magnesium sulfate for tocolysis/neuro protection and also given 2 doses of steroids for lung maturity. She is currently lying in supine position w ith no apparent distress. She denies any vaginal bleeding or discharge. The patient advised to ret urn to the hospital if vaginal bleeding returns and to follow up with the perinatologist tomorrow mo rning. All questions were answered. Dictated By: SCAR KNAPP/GILDA Conf#: [id number] DID#: [id number]
[2017-09-08 14:47] LABS: BASOPHILS % 0.1 % (0.0-2.0); EOSINOPHILS % 0.3 % (0.0-7.0); HEMATOCRIT 26.4 % (37.0-47.0); HEMOGLOBIN 8.8 g/dl (12.0-16.0); LYMPHOCYTES # 2.1 10^3/ul (0.8-2.9); LYMPHOCYTES % 13.3 % (15.0-51.0); MEAN CORPUSCULAR HEMOGLOBIN 29.7 pg (29.0-33.0); MEAN CORPUSCULAR HGB CONC 33.3 g/dl (32.0-37.0); MEAN CORPUSCULAR VOLUME 89.2 fl (82.0-101.0); MONOCYTE # 1.5 10^3/ul (0.3-0.9); MONOCYTES % 9.6 % (0.0-11.0); NEUTROPHIL # 11.7 10^3/ul (1.6-7.5); NEUTROPHILS % 75.1 % (39.0-77.0); NUCLEATED RED BLOOD CELLS% 0.2 /100WBC (0.0-0.0); PLATELET COUNT 178 10^3/UL (140-415); RED BLOOD COUNT 2.96 10^6/ul (4.20-5.40); RED CELL DISTRIBUTION WIDTH 14.6 % (11.5-14.5); WHITE BLOOD COUNT 15.6 10^3/ul (4.8-10.8)
[2017-09-09] MEDS ORDERED: METHYLERGONOVINE 0.2 MG INJ ONE (07:00)
[2017-09-09] MEDS ORDERED: OXYTOCIN 30 UNITS/LR 500 ML BAG IV ONE ×2 (07:00)
[2017-09-09] MEDS: FERROUS SULFATE (EC) 325 MG TAB PO SCH (08:53)
[2017-09-09] MEDS: PRENATAL VITAMIN PO SCH (08:56)
[2017-09-09] MEDS ORDERED: NIFEdipine 10 MG CAP PO SCH (09:00)
--- NOTE | 2017-09-09 09:10 | QN ---
Documentation Comment patient is seen at the bedside,Patient had a n episode of bleeding over night, Currently not bleeding Some brownish discharge on pad NSt reassuring for GA [place] Irregular CTXs Pelvic some brownish discharge on pad --->Patient is started on Nifedipine --->Perinatalogy follow up consult --->Continoius monitoring --->repeat ul;trasound today SARAI CHRISTIANSON M.D. Sep 09, 2017 09:10
[2017-09-09] MEDS ORDERED: CEFAZOLIN 2 GM/50 ML (PMX) 50 ML IVPB ONE ×2 (09:23→10:30)
--- NOTE | 2017-09-09 09:23 | RADRPT ---
PROCEDURE: Limited OB ultrasound CLINICAL INDICATION: Vaginal bleeding TECHNIQUE: Sonographic evaluation to assess the HARIS was performed. Transabdominal imaging of the gravid uterus was performed. COMPARISON: US 09/05/2017 FINDINGS: There is a single live intrauterine with a heart rate of 150 bpm. position is cephalic. The placenta is left lateral. The HARIS measures 9.3 cm. There is a 5.8 x 2.0 cm hypoecho ic area along the site of the placenta near the fundus. The cervix is dilated 5 mm. IMPRESSION: 1. The HARIS measures 9.3 cm. 2. The cervix is dilated 5 mm. 3. 5.8 x 2.0 cm hypoechoic area, possibly hematoma, along the side of the placenta near the f undus. Findings were discussed with Dr. Deluna on 09/09/2017 9:23:06 AM. RPTAT: HH .Nila Umaña MD, Date Time Electronically viewed and signed by .Nila Umaña MD, on 09/09/2017 09:23 .G/
[2017-09-09] MEDS ORDERED: CITRIC ACID/SODIUM CITRATE 15 ML CUP PO ONE (09:30)
[2017-09-09] MEDS ORDERED: CITRIC ACID/NA CITRATE 30 ML CUP ONE (09:30)
[2017-09-09] MEDS ORDERED: morphine SULFATE/PF (10 MG/10 ML) INJ ONE (09:33)
[2017-09-09] MEDS ORDERED: PHENYLephrine (100 MCG/ML) 5ML SYG ONE ×3 (09:37→10:07)
[2017-09-09] MEDS: CEFAZOLIN 2 GM/50 ML (PMX) 50 ML IV SCH ×2 (09:37→10:12)
[2017-09-09] MEDS ORDERED: OXYTOCIN 10 UNIT INJ ONE (09:43)
[2017-09-09] MEDS ORDERED: KETOROLAC 30 MG INJ ONE (09:56)
[2017-09-09] MEDS ORDERED: ONDANSETRON 4 MG INJ ONE (09:56)
[2017-09-09] MEDS ORDERED: METOCLOPRAMIDE 10 MG INJ ONE (09:56)
[2017-09-09] MEDS ORDERED: DEXAMETHASONE 4 MG/ML 1 ML INJ ONE (09:57)
--- NOTE | 2017-09-09 10:15 | QN ---
Documentation Comment Ultrasound showed complete dilation and preogressing hematoma, Vaginal exam Complete,Head is not engaged in pelvis Case D/w and A decision for primary c/section made due to progressing abruption and remote vaginal delivery SARAI CHRISTIANSON M.D. Sep 09, 2017 10:15
--- NOTE | 2017-09-09 10:17 | OPPN ---
Date/Time of Note Date/Time of Note DATE: 09/09/17 TIME: 10:15 Operative Report Planned Procedure Procedure date Sep 09, 2017 Procedure(s) primary c/section Performed by see signature line Staffing Program Manager Pre-procedure diagnosis Progressing Placental abruption Remote from delivery Anesthesia Type: spinal Post-Procedure Post-procedure diagnosis same Findings Live Baby [], Apgars [] and [], weight [], position [], [] presentation []cord. Estimated Blood Loss: 400 - 500 mls Specimen(s) placenta Grafts/Implant(s) none Complication(s) none SARAI CHRISTIANSON M.D. Sep 09, 2017 10:17
[2017-09-09] MEDS ORDERED: HETASTARCH 6% NACL 500 ML BAG IV* ONE (10:30)
[2017-09-09] MEDS ORDERED: PROPOFOL 20 ML ONE (10:37)
[2017-09-09 10:50] LABS: BASOPHIL # 0.1 10^3/ul (0.0-0.1); BASOPHILS % 0.3 % (0.0-2.0); EOSINOPHILS % 0.2 % (0.0-7.0); HEMATOCRIT 32.7 % (37.0-47.0); HEMOGLOBIN 10.8 g/dl (12.0-16.0); LYMPHOCYTES # 1.6 10^3/ul (0.8-2.9); LYMPHOCYTES % 9.8 % (15.0-51.0); MEAN CORPUSCULAR VOLUME 87.9 fl (82.0-101.0); MEAN PLATELET VOLUME 11.3 fl (7.4-10.4); MONOCYTE # 1.1 10^3/ul (0.3-0.9); NEUTROPHIL # 13.4 10^3/ul (1.6-7.5); NEUTROPHILS % 81.5 % (39.0-77.0); NUCLEATED RED BLOOD CELLS% 0.1 /100WBC (0.0-0.0); PLATELET COUNT 180 10^3/UL (140-415); RED BLOOD COUNT 3.72 10^6/ul (4.20-5.40); WHITE BLOOD COUNT 16.4 10^3/ul (4.8-10.8)
[2017-09-09] MEDS: OXYTOCIN 30 UNITS/LR 500 ML IV SCH ×2 (10:52→14:15)
[2017-09-09] MEDS ORDERED: morphine 4 MG/ML VIAL IV PRN (12:00)
[2017-09-09] MEDS ORDERED: morphine 2 MG INJ IV PRN (12:00)
[2017-09-09] MEDS ORDERED: HYDROmorphONE 0.5 MG/0.5 ML SYG IV PRN (12:00)
[2017-09-09] MEDS ORDERED: NALBUPHINE HCL (10 MG/1 ML) INJ IV PRN (12:00)
[2017-09-09] MEDS ORDERED: ACETAMINOPHEN 500 MG TAB PO PRN (12:00)
[2017-09-09] MEDS ORDERED: ONDANSETRON 4 MG INJ IV PRN (12:00)
[2017-09-09] MEDS ORDERED: NALOXONE (0.4 MG/ML) INJ IV PRN (12:00)
[2017-09-09] MEDS ORDERED: HYDROCODONE/APAP (5/325) TAB PO PRN (12:00)
[2017-09-09] MEDS ORDERED: DIPHENHYDRAMINE 50 MG INJ IV PRN (12:00)
--- NOTE | 2017-09-09 12:02 | OPR ---
DATE OF OPERATION: 09/09/2017 PREOPERATIVE DIAGNOSES: A 24 weeks' gestational age lady with progressing abruption and remote from delivery. POSTOPERATIVE DIAGNOSES: A 24 weeks' gestational age lady with progressing abruption and remote fro m delivery. OPERATION PERFORMED: Primary section. ATTENDING SURGEON: Russell Christianson MD. AIR EXPORT COORDINATOR: Dr. Messer ANESTHESIOLOGIST: Dr. Aquino. TYPE OF ANESTHESIA: Spinal. COMPLICATIONS: None. ESTIMATED BLOOD LOSS: 550 mL. TECHNIQUE: The patient was taken to the operating room where spinal anesthesia was found to be adeq uate. The patient was placed in supine position. After prep and drape, a Pfannenstiel incision was made above the symphysis pubis. It was extended to the underlying fascia. Fascia was nicked in th e midline. Fascial incision was extended bilaterally. Fascia was from underlying muscles . Muscle was in the midline. Peritoneum was entered sharply. Peritoneal incision was ex tended. Bladder blade was placed inside the abdominal cavity. Lower uterine segment incision was m joana. Baby was delivered vertex, handed to the NICU team. Cord blood sent. Placenta was removed ma nually. Uterus was exteriorized. Intrauterine cavity was cleaned using 2 sponges. Lower uterine s egment incision was closed in 1 layer using 0 looped PDS sutures. Gutters were cleaned. Uterus was inserted inside the abdominal cavity. Peritoneum and muscles were reapproximated using 2-0 chromic sutures. Fascia was closed in a running nonlocking fashion using 0 PDS sutures. Subcutaneous tiss ue was closed using plain sutures. Skin was closed using Monocryl sutures. Dermabond was placed on top of the incision. The patient tolerated the procedure well and was transferred to recovery room in stable condition. There was no complication regarding this surgery. Dictated By: RUSSELL CHRISTIANSON MD RG/NTS Conf#: [id number] DID#: [id number] CC: SCAR ROMO MD; Dr. Messer;*[facility]*
[2017-09-09] MEDS ORDERED: morphine 2 MG INJ ONE (12:03)
[2017-09-09 12:19] LABS: BARBITURATES Negative (NEGATIVE); BENZODIAZEPINES Negative (NEGATIVE)
[2017-09-09 12:20] LABS: CANNABINOIDS Negative (NEGATIVE); COCAINE Negative (NEGATIVE); OPIATES Negative (NEGATIVE)
[2017-09-09 16:00] VITALS: BP 125/79; PULSE 99; RESP 18
[2017-09-09] MEDS ORDERED: CARBOPROST 250 MCG INJ IM PRN (16:00)
[2017-09-09] MEDS ORDERED: METHYLERGONOVINE 0.2 MG INJ IM PRN (16:00)
[2017-09-09] MEDS ORDERED: LANOLIN 7 GM TUBE TOP PRN (16:00)
[2017-09-09] MEDS ORDERED: OXYTOCIN 30 UNITS/LR 500 ML IV PRN (16:00)
[2017-09-09] MEDS: LACTATED RINGER'S 1,000 ML IV SCH ×2 (16:00→18:23)
[2017-09-09] MEDS ORDERED: MISOPROSTOL 200 MCG TAB PR PRN (16:00)
[2017-09-09 16:45] VITALS: BP 121/69; PULSE 100; RESP 18
[2017-09-09] MEDS: HYDROmorphONE 0.5 MG/0.5 ML SYG IV PRN ×2 (18:34→21:35)
[2017-09-09 19:30] VITALS: BP 120/75; PULSE 98; RESP 18
[2017-09-09] MEDS: SENNA/DOCUSATE NA (8.6MG/50MG) TAB PO SCH (21:07)
[2017-09-09 22:02] LABS: BASOPHILS % 0.1 % (0.0-2.0); LYMPHOCYTES # 1.1 10^3/ul (0.8-2.9); LYMPHOCYTES % 5.1 % (15.0-51.0); MEAN CORPUSCULAR HEMOGLOBIN 29.9 pg (29.0-33.0); MEAN CORPUSCULAR HGB CONC 34.5 g/dl (32.0-37.0); MEAN CORPUSCULAR VOLUME 86.6 fl (82.0-101.0); MEAN PLATELET VOLUME 10.8 fl (7.4-10.4); MONOCYTE # 1.2 10^3/ul (0.3-0.9); MONOCYTES % 5.5 % (0.0-11.0); NEUTROPHIL # 19.3 10^3/ul (1.6-7.5); NEUTROPHILS % 88.7 % (39.0-77.0); PLATELET COUNT 182 10^3/UL (140-415); RED BLOOD COUNT 3.35 10^6/ul (4.20-5.40); RED CELL DISTRIBUTION WIDTH 13.7 % (11.5-14.5); WHITE BLOOD COUNT 21.8 10^3/ul (4.8-10.8)
[2017-09-09] MEDS: CEFAZOLIN 2 GM/50 ML (PMX) 50 ML IVPB SCH (22:14)
[2017-09-09 22:57] LABS: ADD UMIC YES; UR ASCORBIC ACID NEGATIVE (NEGATIVE); UR BILIRUBIN (Dip) NEGATIVE (NEGATIVE); UR BLOOD (Dip) 1+ mg/dL (NEGATIVE); UR CLARITY CLEAR (CLEAR); UR COLOR STRAW (YELLOW); UR GLUCOSE (Dip) NEGATIVE (NEGATIVE); UR KETONES (Dip) NEGATIVE (NEGATIVE); UR LEUKOCYTE ESTERASE (Dip) NEGATIVE Leu/ul (NEGATIVE); UR NITRITE (Dip) NEGATIVE (NEGATIVE); UR RBC 1 /HPF (0-5); UR SPECIFIC GRAVITY (Dip) 1.004 (1.003-1.030); UR TOTAL PROTEIN (Dip) NEGATIVE (NEGATIVE); UR UROBILINOGEN (Dip) NEGATIVE (NEGATIVE)
[2017-09-09 23:45] VITALS: BP 100/68; PULSE 96; RESP 18
[2017-09-10] MEDS: HYDROmorphONE 0.5 MG/0.5 ML SYG IV PRN ×2 (02:05→06:15)
[2017-09-10] MEDS: LACTATED RINGER'S 1,000 ML IV SCH ×2 (03:01→16:00)
[2017-09-10 04:00] VITALS: BP 98/65; PULSE 95; RESP 18
[2017-09-10] MEDS: CEFAZOLIN 2 GM/50 ML (PMX) 50 ML IVPB SCH ×3 (06:18→21:29)
[2017-09-10] MEDS: SENNA/DOCUSATE NA (8.6MG/50MG) TAB PO SCH ×2 (08:21→21:29)
[2017-09-10] MEDS: OXYCODONE/ACETAMINOPHEN (5/325) TAB PO PRN ×3 (08:22→19:47)
[2017-09-10 08:45] VITALS: BP 109/68; PULSE 89; RESP 18
[2017-09-10 08:47] LABS: BASOPHILS % 0.1 % (0.0-2.0); EOSINOPHILS % 0.1 % (0.0-7.0); HEMATOCRIT 29.6 % (37.0-47.0); HEMOGLOBIN 9.6 g/dl (12.0-16.0); LYMPHOCYTES # 1.4 10^3/ul (0.8-2.9); LYMPHOCYTES % 8.7 % (15.0-51.0); MEAN CORPUSCULAR HEMOGLOBIN 28.7 pg (29.0-33.0); MEAN CORPUSCULAR HGB CONC 32.4 g/dl (32.0-37.0); MEAN CORPUSCULAR VOLUME 88.6 fl (82.0-101.0); MEAN PLATELET VOLUME 10.9 fl (7.4-10.4); MONOCYTE # 0.9 10^3/ul (0.3-0.9); MONOCYTES % 5.6 % (0.0-11.0); NEUTROPHIL # 13.8 10^3/ul (1.6-7.5); NEUTROPHILS % 84.8 % (39.0-77.0); PLATELET COUNT 175 10^3/UL (140-415); RED BLOOD COUNT 3.34 10^6/ul (4.20-5.40); RED CELL DISTRIBUTION WIDTH 14.1 % (11.5-14.5); WHITE BLOOD COUNT 16.3 10^3/ul (4.8-10.8)
[2017-09-10] MEDS: IBUPROFEN 600 MG TAB PO SCH ×2 (11:44→17:20)
--- NOTE | 2017-09-10 12:24 | QN ---
Documentation Comment POD#1 is stable afebrile tolerates Diet No VB+Flatus +voids VS stable. Gen NAD Abd soft NT ND Incision intact Genitalia No blood at perinium --->dischare plan tomorrow SARAI CHRISTIANSON M.D. Sep 10, 2017 12:24
--- NOTE | 2017-09-10 12:25 | DS ---
Date/Time of Note Date/Time of Note DATE: 09/10/17 TIME: 12:24 Discharge Summary Admission/Discharge Info Admit Date/Time Sep 05, 2017 at 13:50 Discharge Date/Time Discharge Diagnosis post c/section Patient Condition: Good Procedures Primary c/section Hospital Course uneventful Home Meds Reported Medications Pnv No.95/Ferrous Fum/Folic AC ( Multivitamin Tablet) 1 Each Tablet, 1 EACH PO, TAB 08/16/17 Primary Care Provider Care Physician No Primary Pending Labs Laboratory Tests Test 09/09/17 21:55 09/09/17 21:57 09/10/17 08:31 Urine Color STRAW (YELLOW) Urine Clarity CLEAR (CLEAR) Urine pH 7.0 (5.0-9.0) Urine Specific Thelma 1.004 (1.003-1.030) Urine Ketones NEGATIVEmg/dL (NEGATIVE) Urine Nitrite NEGATIVEmg/dL (NEGATIVE) Urine Bilirubin NEGATIVEmg/dL (NEGATIVE) Urine Urobilinogen NEGATIVEmg/dL (NEGATIVE) Urine Leukocyte Esterase NEGATIVELeu/ul (NEGATIVE) Urine Microscopic RBC 1/HPF (0-5) Urine Microscopic WBC 1/HPF (0-5) Urine Hemoglobin 1+mg/dL (NEGATIVE) Urine Glucose NEGATIVEmg/dL (NEGATIVE) Urine Total Protein NEGATIVEmg/dl (NEGATIVE) White Blood Count 21.810^3/ul (4.8-10.8) 16.310^3/ul (4.8-10.8) Red Blood Count 3.3510^6/ul (4.20-5.40) 3.3410^6/ul (4.20-5.40) Hemoglobin 10.0g/dl (12.0-16.0) 9.6g/dl (12.0-16.0) Hematocrit 29.0% (37.0-47.0) 29.6% (37.0-47.0) Mean Corpuscular Volume 86.6fl (82.0-101.0) 88.6fl (82.0-101.0) Mean Corpuscular Hemoglobin 29.9pg (29.0-33.0) 28.7pg (29.0-33.0) Mean Corpuscular Hemoglobin Concent 34.5g/dl (32.0-37.0) 32.4g/dl (32.0-37.0) Red Cell Distribution Width 13.7% (11.5-14.5) 14.1% (11.5-14.5) Platelet Count 28398^3/UL (140-415) 54534^3/UL (140-415) Mean Platelet Volume 10.8fl (7.4-10.4) 10.9fl (7.4-10.4) Neutrophils % 88.7% (39.0-77.0) 84.8% (39.0-77.0) Lymphocytes % 5.1% (15.0-51.0) 8.7% (15.0-51.0) Monocytes % 5.5% (0.0-11.0) 5.6% (0.0-11.0) Eosinophils % 0.0% (0.0-7.0) 0.1% (0.0-7.0) Basophils % 0.1% (0.0-2.0) 0.1% (0.0-2.0) Nucleated Red Blood Cells % 0.0/100WBC (0.0-0.0) 0.0/100WBC (0.0-0.0) Neutrophils # 19.310^3/ul (1.6-7.5) 13.810^3/ul (1.6-7.5) Lymphocytes # 1.110^3/ul (0.8-2.9) 1.410^3/ul (0.8-2.9) Monocytes # 1.210^3/ul (0.3-0.9) 0.910^3/ul (0.3-0.9) Eosinophils # 0.010^3/ul (0.0-0.5) 0.010^3/ul (0.0-0.5) Basophils # 0.010^3/ul (0.0-0.1) 0.010^3/ul (0.0-0.1) Nucleated Red Blood Cells # 0.010^3/ul (0.0-0.0) 0.010^3/ul (0.0-0.0) SARAI CHRISTIANSON M.D. Sep 10, 2017 12:25
[2017-09-10 15:40] VITALS: BP 101/70; PULSE 88; RESP 18
[2017-09-10 19:10] VITALS: BP 105/60; PULSE 94; RESP 21
[2017-09-10] MEDS: OXYTOCIN 30 UNITS/LR 500 ML IV SCH (19:59)
--- NOTE | 2017-09-10 20:13 | QN ---
Documentation Comment I was called to evaluate the patient after passing a large blood clot with a foul smell Patient is postop day 1 status post primary for placental abruption at 24 weeks of gestation Patient's been afebrile for 24 hours She is currently on Ancef IV Vital signs stable Abdomen soft, nontender nondistended Perineum no active vaginal bleeding extremity nontender Hemoglobin 9.6 and hematocrit 29.6 Assessment and plan We will send for urine culture Continue with antibiotics IV We will start IV fluids with oxytocin Consider cancel discharge for tomorrow DENISA VELAZQUEZ MD Sep 10, 2017 20:13
[2017-09-11] VITALS: BP 111/73; PULSE 86; RESP 20
[2017-09-11] MEDS: LACTATED RINGER'S 1,000 ML IV SCH
[2017-09-11] MEDS: IBUPROFEN 600 MG TAB PO SCH ×4 (00:22→17:33)
[2017-09-11 04:00] VITALS: BP 98/54; PULSE 63; RESP 19
[2017-09-11] MEDS: OXYTOCIN 30 UNITS/LR 500 ML IV SCH ×2 (04:00)
[2017-09-11] MEDS: CEFAZOLIN 2 GM/50 ML (PMX) 50 ML IVPB SCH ×2 (05:30→13:34)
[2017-09-11] MEDS: OXYCODONE/ACETAMINOPHEN (5/325) TAB PO PRN ×3 (05:33→19:59)
[2017-09-11 08:05] VITALS: BP 104/69; PULSE 82; RESP 18
[2017-09-11] MEDS: SENNA/DOCUSATE NA (8.6MG/50MG) TAB PO SCH ×2 (08:15→21:00)
[2017-09-11 12:16] VITALS: BP 95/59; PULSE 98; RESP 20
[2017-09-11 17:15] VITALS: BP 98/53; PULSE 94; RESP 20
[2017-09-11 19:55] VITALS: BP 106/67; PULSE 101; RESP 18
[2017-09-12] MEDS: OXYCODONE/ACETAMINOPHEN (5/325) TAB PO PRN ×4 (00:11→23:34)
[2017-09-12 04:00] VITALS: BP 114/69; PULSE 80; RESP 18
[2017-09-12] MEDS: IBUPROFEN 600 MG TAB PO SCH ×4 (05:45→17:42)
[2017-09-12 07:30] VITALS: BP 121/78; PULSE 77; RESP 20
[2017-09-12] MEDS ORDERED: DIPHTH/TET/ACEL PERTUSS (ADULT) 0.5 ML VIAL IM* ONE (09:00)
--- NOTE | 2017-09-12 10:08 | PD.PPDC ---
SKY LINE YARDER Discharge Instruction Condition Patient Condition: Good Diet Diet: Resume Regular Diet Activity/Restrictions Activity: Bedrest Restrictions: No Exercising No Lifting Minimize Walking Minimize Stair-climbing No Sexual Activity Nothing in the Vagina No [place] No Tampons, douche Return to clinic for PRODUCE INSPECTOR Instructions: Fever greater than 101 [place] Worsening abdominal pain Excessive Vaginal Bleeding More than 2 pads per hour Unable to tolerate diet OB Instructions: Breast Tenderness Depression Blurried Vision Headache SCAR ROMO MD Sep 12, 2017 10:08
[2017-09-12] MEDS: SENNA/DOCUSATE NA (8.6MG/50MG) TAB PO SCH ×2 (10:49→21:00)
[2017-09-12 16:00] VITALS: BP 117/69; PULSE 86; RESP 20
[2017-09-12 19:54] VITALS: BP 118/62; PULSE 89; RESP 18
[2017-09-13 04:00] VITALS: BP 110/64; PULSE 65; RESP 18
[2017-09-13] MEDS: OXYCODONE/ACETAMINOPHEN (5/325) TAB PO PRN ×2 (04:03→07:57)
--- NOTE | 2017-09-13 05:13 | DS ---
DATE OF ADMISSION: 09/05/2017 DATE OF DISCHARGE: PRIMARY DIAGNOSES: Intrauterine at 24 weeks gestational age, progressing abruption, remot e from delivery. PROCEDURE: Primary delivery. CONDITION ON DISCHARGE: Stable. ACTIVITY: None per vagina, no heavy lifting x6 weeks. DIET: Regular. MEDICATIONS ON DISCHARGE: 1. Motrin. 2. Percocet. 3. Iron. 4. Colace. DISCHARGE SUMMARY: Ms. Shayla Matos is a 22-year-old 1, para 1 status post primary cesarea n delivery on 09/09/2017 secondary to progressing placenta abruption, remote from delivery. She had an uneventful postop day 1, 2 and 3. She will be discharged on postop day 4. Her incision is gege n, dry, intact. She is ambulating, tolerating diet, positive flatulence, positive bowel movement. She will follow up in the office in 2 weeks for /postop care. Dictated By: SCAR KNAPP/GILDA Conf#: [id number] DID#: [id number]
[2017-09-13] MEDS: IBUPROFEN 600 MG TAB PO SCH ×2 (06:00)
[2017-09-13 07:57] VITALS: BP 139/83; PULSE 68; RESP 20
[2017-09-13] MEDS: SENNA/DOCUSATE NA (8.6MG/50MG) TAB PO SCH (07:57)
== END 2017-09-13 10:35 | disposition home or self-care (01) | DRG 765 ==
LOC: L-D 10:18 → OBT 10:18 → L-D 13:50 → OBT 13:56 → L-D 16:44 → PP1 09-09 15:49
PROVIDERS: ADMIT Obstetrics & Gynecology; ATTEND Obstetrics & Gynecology
PROC: 10D00Z1 Extraction of Products of Conception, Low, Open Approach (ICD-10-PCS; principal; 2017-09-09 09:45)
DX: O60.13X0 Preterm labor second trimester with preterm delivery third trimester, not applicable or unspecified (principal); O45.92 Premature separation of placenta, unspecified, second trimester; Z3A.24 24 weeks gestation of pregnancy; Z37.0 Single live birth
CPT/HCPCS: 76815; 76816; 76817; 80307; 81001; 82731; 83735; 85025; 86592; 86850; 86900; 86901; 86920; 87086; 87340; 88307; 90715; 94760; 99464; G0463; J0690; J0702; J1100; J1170; J1885; J2210; J2270; J2274; J2370; J2405; J2590; J2765; J3475; J7120